=== PATIENT | female | born 1990 | race Hispanic/Latino ===

== ENCOUNTER 2019-09-11 13:30 | Outpatient (CLI) | payer BC, SELFPAY ==
--- NOTE | ~2019-09-11 | MR_ITS ---
EXAMINATION: MR brain/brain stem wo/w con DATE: 09/11/2019 17:25 CDT INDICATION: Persistent daily headaches. TECHNIQUE: Magnetic resonance imaging (MRI) of the brain and brainstem was performed without and with 20 cc MultiHance intravenous contrast. Sequences included sagittal and axial T1-weighted SE, axial d iffusion-weighted FS SE, axial T2*-weighted GRE, axial T2-weighted FLAIR Propeller, and axial T2-weig hted Propeller. Apparent diffusion coefficient (ADC) maps were created. COMPARISON: No prior studies for comparison. FINDINGS: The brain volume and ventricular system are within normal limits. The brain parenchymal si gnal intensity pattern and haji/white matter is normal and there is no evidence of hemorrhage, space occupying masses or infarctions. The flow signal voids of the major arterial structures about the kake of [place] and within the fab r dural venous sinuses appear grossly unremarkable and patent. The seventh and eighth cranial nerve complexes are normal. The mid sagittal image demonstrates a normal craniovertebral junction and chuck us callosum. There is mucosal thickening of the maxillary sinuses, likely chronic. No abnormal contrast enhancement was appreciated. IMPRESSION: 1: No acute intracranial abnormality. 2: Mild sinus disease, likely chronic. Reviewed, dictated and finalized at location A.
[2019-09-11 13:57] LABS: Estimated Glomerular Filt Rate > 60
== END 2019-09-11 13:31 ==
PROVIDERS: Visit Provider Physician Assistant
DX: G44.52 New daily persistent headache (NDPH) (principal)
CPT/HCPCS: 36415; 70553; A9577

== ENCOUNTER 2020-09-27 15:13 | Outpatient (CLI) | payer BC, SELFPAY ==
--- NOTE | ~2020-09-27 | US_ITS ---
EXAMINATION: US pelvic complete w TV DATE: 09/27/2020 15:43 INDICATION: Uterine hypertrophy Comparison:No prior studies for comparison. TECHNIQUE: Multiple transabdominal and endovaginal sonographic images of the pelvis performed. FINDINGS: The uterus measures 10.8 x 4.8 x 6.3 cm. The endometrial complex measures 2.2 cm. The right ovary measures 2.5 x 2.5 x 2 cm and the left ovary measures 1.8 x 2.4 x 1.9 cm. There are small follicles in each ovary. Normal doppler signal in both ovaries. There is no free fluid in the pelvis. There are no abnormal masses seen on either side. IMPRESSION: 1. Enlarged uterus with endometrial thickening measuring 2.2 cm. Reviewed, dictated and finalized at location B.
== END 2020-09-27 15:14 | disposition home or self-care (01) ==
PROVIDERS: PCP Physician Assistant; Visit Provider Obstetrics & Gynecology
DX: N85.2 Hypertrophy of uterus (principal)
CPT/HCPCS: 76830; 76856

== ENCOUNTER 2021-01-16 09:17 | Emergency (ER) | payer BC, SELFPAY ==
[2021-01-16 09:33] VITALS: BP 137/88; PULSE 100; RESP 16; TEMP 36.3; O2SAT 98
[2021-01-16 11:25] LABS: Basophils Absolute Auto 0.1 K/mm3 (0.0-0.1); Basophils Percent Auto 0.6 % (0.2-1.2); Eosinophils Absolute Auto 0.8 K/mm3 (0-0.3); Eosinophils Percent Auto 4.6 % (0-4.4); Hematocrit 40.8 % (37.0-47.0); Hemoglobin 12.7 g/dL (12.0-15.0); Immature Granulocyte Absolute 0.14 K/mm3 (0.00-0.031); Immature Granulocyte Percent A 0.8 % (0-0.5); Lymphocytes Absolute Auto 2.01 K/mm3 (0.9-3.2); Lymphocytes Percent Auto 11.8 % (18.3-44.2); Mean Corpuscular HGB Conc 31.1 g/dl (32-36); Mean Corpuscular Hemoglobin 25.4 pg (26-34); Mean Corpuscular Volume 81.6 fl (80-100); Mean Platelet Volume 9.5 fl (7.4-10.4); Monocytes Absolute Auto 0.8 K/mm3 (0.1-0.6); Monocytes Percent Auto 4.7 % (2.6-8.5); Neutrophils Absolute Auto 13.2 K/mm3 (1.3-6.7); Neutrophils Percent Auto 77.5 % (45.5-73.1); Platelet Count Result 435 k/mm3 (150-375); Red Cell Distribution Width 16.2 % (11.5-14.5)
[2021-01-16 12:03] LABS: Beta HCG Quantitative < 2.39 mIU/ML
[2021-01-16 12:22] VITALS: BP 139/79; PULSE 99
[2021-01-16 12:26] VITALS: BP 132/94; PULSE 108
[2021-01-16 12:27] VITALS: BP 131/94; PULSE 110
--- NOTE | 2021-01-16 13:11 | ED.FEMALEGU ---
HPI - Female Genitourinary General Chief complaint: Vaginal Bleeding Stated complaint: VAGINAL BLEEDING FOR 62 DAYS Time Seen by Provider: 01/16/21 12:35 Source: patient Mode of arrival: ambulatory Limitations: no limitations History of Present Illness HPI Narrative: Patient is 30 years old white female drove herself to the emergency room because of vaginal bleeding started over 60 days ago. 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 Patient is telling me that she been using 10-15 pads a day associated with blood clots. Patient denies any pain, cramps, lightheadedness, dizziness, shortness of breath or any other symptoms. Currently patient is on iron supplement. Related Data Home Medications Medication Instructions Recorded Confirmed citalopram 20 mg tablet 20 mg PO DAILY 09/20/20 09/20/20 fexofenadine 180 mg tablet 180 mg PO DAILY 09/20/20 09/20/20 lorazepam 1 mg tablet 1 mg PO DAILY PRN 09/20/20 09/20/20 bupropion HCl mg PO DAILY 01/16/21 drospirenone (contraceptive) 01/16/21 [Slynd] Allergies Allergy/AdvReac Type Severity Reaction Status Date / Time No Known Allergies Allergy Verified 01/16/21 12:19 Review of Systems Review of Systems: CONSTITUTIONAL: Denies fever, chills, or sweats. EYES: Denies visual changes, redness, or discharge. ENT: Denies rhinorrhea, congestion, sore throat, or otalgia. CARDIOVASCULAR: Denies chest pain, palpitations, or edema. RESPIRATORY: Denies cough or dyspnea. GASTROINTESTINAL: Denies abdominal pain, nausea, vomiting, or diarrhea. GENITOURINARY: Denies dysuria or hematuria. SKIN: Denies rash or itching. MUSCULOSKELETAL: Denies back pain, joint pain, or myalgia. NEUROLOGIC: Denies headache, numbness, or weakness. PSYCHIATRIC: Denies anxiety or depression. [facility] Past Medical History Medical History Anxiety Headache Vaginal delivery x2 Surgical History Surgical History History of elbow surgery 1999 [place] teeth extracted 2008 Family History Family History Grandparent Family history of coronary artery disease Lung cancer Cerebrovascular accident Heart disease Father Hypertension Heart disease Social History Social History Smoking status: Never smoker Second hand tobacco smoke exposure: No Alcohol intake: current Alcohol use details: occassional Substance use: never Exam Narrative: General appearance: Well-developed, well-nourished Skin: Normal color Head: Normocephalic, nontraumatic Eyes: Clear conjunctiva ENT: Oropharynx normal, ears normal, nose normal Neck: Supple, nontender Chest and respiratory: Airway patent, no respiratory distress, no accessory muscle use Heart: Regular rate/rhythm Abdomen: Soft, nontender, no organomegaly, quiet bowel sounds Vascular: Normal peripheral pulses, normal capillary refill. Musculoskeletal: Normal range of motion, nontender back Neurologic: Alert and oriented ?3, GEAR DESIGN ENGINEER is normal as tested, no gross motor deficit : External Female Exam: normal external appearance Speculum Exam - Vagina: normal appearance of the vagina and vaginal bleeding (No blood clots, 2 long Q-tip was enough to dry the whole vaginal pouch) Speculum Exam - Cervix: normal appearance of the cervix, normal palpation and Cervical os closed Bimanual exam- vagina & uterus: normal bimanual exam Course Course Emergency Course: Stable Vital Signs Vital signs: Vital Signs Temperature 36.3 C L 01/16/21 09:33 Pulse Rate 100
[2021-01-16] MEDS: SODIUM CHLORIDE 0.9% IV 1,000 ML 999 ML IV CONT (13:25)
[2021-01-16 14:32] VITALS: BP 129/86; PULSE 93; RESP 18; O2SAT 100
== END 2021-01-16 14:33 | disposition home or self-care (01) ==
PROVIDERS: Emergency Provider Emergency Medicine; PCP Physician Assistant
DX: N93.8 Other specified abnormal uterine and vaginal bleeding (principal); F41.9 Anxiety disorder, unspecified
CPT/HCPCS: 36415; 84702; 85025; 96360; 99284; J7030

== ENCOUNTER 2021-02-01 16:46 | Emergency (ER) | payer BC, SELFPAY ==
[2021-02-01 17:07] VITALS: BP 150/83; PULSE 108; RESP 16; TEMP 37.1; O2SAT 100
[2021-02-01 17:48] LABS: Basophils Absolute Auto 0.1 K/mm3 (0.0-0.1); Basophils Percent Auto 0.6 % (0.2-1.2); Eosinophils Absolute Auto 0.4 K/mm3 (0-0.3); Eosinophils Percent Auto 2.9 % (0-4.4); Hematocrit 36.6 % (37.0-47.0); Hemoglobin 11.5 g/dL (12.0-15.0); Immature Granulocyte Absolute 0.06 K/mm3 (0.00-0.031); Immature Granulocyte Percent A 0.4 % (0-0.5); Lymphocytes Absolute Auto 2.64 K/mm3 (0.9-3.2); Lymphocytes Percent Auto 18.9 % (18.3-44.2); Mean Corpuscular HGB Conc 31.4 g/dl (32-36); Mean Corpuscular Hemoglobin 25.9 pg (26-34); Mean Corpuscular Volume 82.4 fl (80-100); Mean Platelet Volume 9.6 fl (7.4-10.4); Monocytes Absolute Auto 0.8 K/mm3 (0.1-0.6); Monocytes Percent Auto 5.5 % (2.6-8.5); Neutrophils Percent Auto 71.7 % (45.5-73.1); Platelet Count Result 387 k/mm3 (150-375); Red Blood Count 4.44 M/mm3 (4.2-5.4); Red Cell Distribution Width 16.2 % (11.5-14.5); White Blood Count 13.9 K/mm3 (4.5-10.0)
[2021-02-01 21:49] VITALS: BP 136/88; PULSE 112; RESP 16; O2SAT 100
[2021-02-01] MEDS: SODIUM CHLORIDE 0.9% IV 1,000 ML 999 ML IV CONT (22:06)
[2021-02-01 23:03] VITALS: BP 145/107; PULSE 109
[2021-02-01 23:06] VITALS: BP 136/62; PULSE 109
[2021-02-01 23:07] VITALS: BP 144/93; PULSE 117
--- NOTE | 2021-02-01 23:23 | ED.FEMALEGU ---
HPI - Female Genitourinary General Chief complaint: Vaginal Bleeding Stated complaint: vaginal bleeding Time Seen by Provider: 02/01/21 21:17 History of Present Illness HPI Narrative: Patient is a 30-year-old female who presents to the ER with vaginal bleeding. Reports its been ongoing for 92 days. Over the last week she has been feeling a pad with a blood clot every hour but does not fully soaked through the pad. She reports occasional dizziness with sitting to standing and has been feeling fatigued. She is not on any blood thinners. She follows with Dr. Kern who has tried different oral contraceptive pills without resolution of the symptoms. Was referred here due to her bleeding. Denies nausea vomiting or shortness of breath. Related Data Home Medications Medication Instructions Recorded Confirmed citalopram 20 mg tablet 20 mg PO DAILY 09/20/20 09/20/20 fexofenadine 180 mg tablet 180 mg PO DAILY 09/20/20 09/20/20 lorazepam 1 mg tablet 1 mg PO DAILY PRN 09/20/20 09/20/20 bupropion HCl mg PO DAILY 01/16/21 norgestimate-ethinyl estradiol 1 tablet PO DAILY 01/19/21 0.18 mg/0.215mg/0.25mg-35 mcg(28)tablet Allergies Allergy/AdvReac Type Severity Reaction Status Date / Time No Known Allergies Allergy Verified 01/19/21 13:12 Review of Systems Review of Systems: All systems reviewed & are unremarkable except as noted in HPI and below Constitutional: Constitutional: Denies chills and Reports fatigue Gastrointestinal: Gastrointestinal: Reports abdominal pain, Denies diarrhea, Denies nausea and Denies vomiting Genitourinary: Genitourinary: Reports abnormal vaginal bleeding, Reports pelvic pain (Abdominal cramping) and Denies vaginal discharge [facility] Past Medical History Medical History Anxiety Depression Headache Vaginal delivery x2 Surgical History Surgical History History of elbow surgery 1998 [place] teeth extracted 2008 Family History Family History Grandparent Family history of coronary artery disease Lung cancer Cerebrovascular accident Heart disease Father Hypertension Heart disease Social History Social History Smoking status: Never smoker Second hand tobacco smoke exposure: No Alcohol intake: current Alcohol use details: occassional Substance use: never Exam Narrative: GENERAL: Well-appearing, morbidly obese, and in no acute distress. HEAD: Normocephalic, atraumatic. CHEST: Clear to auscultation. No respiratory distress. HEART: Regular rate and rhythm. Normal peripheral pulses. ABDOMEN: Soft, mild suprapubic discomfort with palpation, nondistended. : Normal external genitalia, small amount of dark blood coming from the cervical os. Cervix pink and nonfriable. No vaginal discharge. Pelvic exam performed by PA student under my direct supervision. EXTREMITIES: Normal range of motion. No edema. SKIN: Warm, dry, no rash. NEURO: Alert and oriented x3. Course Course Emergency Course: Contacted Dr. Parsons who is on-call for Dr. Kern. Would like patient to contact the office in the morning to schedule close follow-up as she has not been seen in the office since September. She will then talk to Dr. Kern and they will determine the best additional therapy which may include TXA. Patient's hemoglobin is stable does not require admission or emergent D&C. Vital Signs Vital signs: Vital Signs Temperature 98.7 F 02/01/21 17:07 Pulse Rate 108 H 02/01/21 17:07 Respiratory Rate 16 02/01/21 17:07 Blood Pressure 150/83 H 02/01/21 17:07 Pulse Oximetry 100 02/01/21 17:07 Temperature 98.7 F 02/01/21 17:07 Pulse Rate 117 H 02/01/21 23:07 Respiratory Rate 16 02/01/21 21:49 Blood Pressure 144/93 H 02/01/21 23:07 Pulse Oximetry
[2021-02-01 23:40] VITALS: BP 121/92; PULSE 108; RESP 16; O2SAT 100
== END 2021-02-01 23:42 | disposition home or self-care (01) ==
PROVIDERS: Family Medicine; Emergency Provider Emergency Medicine; PCP Physician Assistant
DX: N92.0 Excessive and frequent menstruation with regular cycle (principal); F41.9 Anxiety disorder, unspecified; F32.9 Major depressive disorder, single episode, unspecified
CPT/HCPCS: 36415; 85025; 96360; 99284; J7030

== ENCOUNTER 2021-02-02 10:20 | Day surgery (SDC) | payer BC, SELFPAY ==
[2021-02-02] VITALS (7 sets, daily range): BP systolic 108–145; BP diastolic 62–90; PULSE 88–117; RESP 15–22; TEMP 36.6; O2SAT 97–99; BMI 44.1
--- NOTE | 2021-02-02 15:08 | P.PNAN_ITS ---
Anes - Initial Pre Proc Eval Procedure: Operation Date: 02/02/21 16:00 Proposed Procedures p Hysteroscopy, Dilation and Curettage, Possible Myosure - Len Alexander MD Date/Time: 02/02/21 15:08 Surgeon: Len Alexander MD Pre Op Diagnosis: menorrhaghia Patient Data Age: 30 Gender: F Height: 1.73 m Weight: 131.55 kg Allergies Allergy/AdvReac Type Severity Reaction Status Date / Time No Known Allergies Allergy Verified 02/02/21 14:59 Home Medications Medication Instructions Recorded Confirmed Type citalopram 20 mg tablet 20 mg PO DAILY 09/20/20 02/02/21 History fexofenadine 180 mg tablet 180 mg PO DAILY 09/20/20 02/02/21 History lorazepam 1 mg tablet 1 mg PO PRN PRN 09/20/20 02/02/21 History bupropion HCl 300 mg PO QAM 01/16/21 02/02/21 History norgestimate-ethinyl estradiol 1 tablet PO DAILY 01/19/21 02/02/21 History 0.18 mg/0.215mg/0.25mg-35 mcg(28)tablet ondansetron HCl 4 mg tablet 4 mg PO Q6H PRN #20 tablet 01/19/21 02/02/21 Rx albuterol sulfate 2 puff INHALATION PRN PRN 02/02/21 02/02/21 History triamterene-hydrochlorothiazid 1 tablet PO PRN PRN 02/02/21 02/02/21 History Patient hx anesthesia problems: none Family hx anesthesia problems: none PMFSH Past Medical History Medical History (Updated 02/02/21 @ 15:09 by Omar Hartley DO) Anxiety Asthma Depression Headache PONV (postoperative nausea and vomiting) Vaginal delivery x2 Surgical History Surgical History History of elbow surgery 1999 [place] teeth extracted 2008 Family History Family History Grandparent Family history of coronary artery disease Lung cancer Cerebrovascular accident Heart disease Father Hypertension Heart disease Social History Social History Smoking status: Never smoker Second hand tobacco smoke exposure: No Alcohol intake: current Alcohol use details: ONE DRINK PER MONTH Substance use: never Spiritual care concerns: No Anes - Eval Final PreProcedure Day of Procedure 02/02/21 15:08 Patient weight: morbidly obese Heart: regular rate and rhythm Lungs: clear to auscultation and normal air movement Airway: Mallampati scale class II Neurological: alert and oriented Last oral intake: >/= 8 hours ASA classification: III Emergent: no Anesthetic plan: proceed Anesthesia type and monitoring: general GIVS and standard monitoring Informed Consent: The patient's anesthetic plan and its attendant risks and julianne efits were discussed with the patient/family/POA. Questions were solicited and answers provided to the satisfaction of the patient/family/POA.
--- NOTE | 2021-02-02 15:20 | PM.IMHP ---
H&P: HPI History of Present Illness Date/Time: 02/02/21 15:20 Patient has had irregular bleeding for 3 months she has been tried on control pills a low-dose control pills has tried Lysteda she has had an ultrasound which was normal she has been to the emergency department several times due to the bleeding her hemoglobin did decrease approximately 2 points from her last ER visit she reports feeling fatigued lightheadedness and dizziness she is saturating more than a pad an hour she has been given options of an IUD and she was informed that her latest medication regimen did help that she would need a D and C since she has had an increased and saturating more than a pad an hour symptomatic she was recommended for an urgent D&C. Chief Complaint: heavy bleeding Review of Systems Review of Systems: All systems reviewed & are unremarkable except as noted in HPI and below Cardiovascular: Cardiovascular: Reports no additional cardiovascular complaints, Denies chest pain and Denies dyspnea Respiratory: Respiratory: Reports no additional respiratory complaints and Denies dyspnea Gastrointestinal: Gastrointestinal: Reports abdominal pain, Denies change in bowel habits, Denies diarrhea, Denies nausea and Denies vomiting Genitourinary: Genitourinary: Reports pelvic pain Musculoskeletal: Musculoskeletal: Reports back pain Integumentary/Breasts: Skin/Breast: Reports system reviewed and no additional complaints, except as docu Neurologic: Reports system reviewed and no additional complaints, except as documented PMFSH Past Medical History Medical History Anxiety Asthma Depression Headache PONV (postoperative nausea and vomiting) Vaginal delivery x2 Surgical History Surgical History History of elbow surgery 1999 [place] teeth extracted 2008 Family History Family History Grandparent Family history of coronary artery disease Lung cancer Cerebrovascular accident Heart disease Father Hypertension Heart disease Social History Social History Smoking status: Never smoker Second hand tobacco smoke exposure: No Alcohol intake: current Alcohol use details: ONE DRINK PER MONTH Substance use: never Spiritual care concerns: No Meds Home Medications and Allergies Home Medications Medication Instructions Recorded Confirmed Type citalopram 20 mg tablet 20 mg PO DAILY 09/20/20 02/02/21 History fexofenadine 180 mg tablet 180 mg PO DAILY 09/20/20 02/02/21 History lorazepam 1 mg tablet 1 mg PO PRN PRN 09/20/20 02/02/21 History bupropion HCl 300 mg PO QAM 01/16/21 02/02/21 History norgestimate-ethinyl estradiol 1 tablet PO DAILY 01/19/21 02/02/21 History 0.18 mg/0.215mg/0.25mg-35 mcg(28)tablet ondansetron HCl 4 mg tablet 4 mg PO Q6H PRN #20 tablet 01/19/21 02/02/21 Rx albuterol sulfate 2 puff INHALATION PRN PRN 02/02/21 02/02/21 History triamterene-hydrochlorothiazid 1 tablet PO PRN PRN 02/02/21 02/02/21 History Allergies Allergy/AdvReac Type Severity Reaction Status Date / Time No Known Allergies Allergy Verified 02/02/21 14:59 Exam Const: Orientation/consciousness: oriented to person and oriented to place HENMT: Head: normal to inspection Eyes: General: appearance normal, both eyes and all related structures Resp: Effort & Inspection: normal respiratory effort Auscultation: clear to auscultation bilaterally Cardio: Rate: regular rate Rhythm: regular rhythm GI: Inspection: normal to inspection GI Palp: No Rebound tenderness present Neuro: General: oriented to person and oriented to place Cognition (Neuro): normal cognition Extrem: General: normal to inspection Psych: Appearance: grossly normal and well kempt Assessment and Plan Assessment and p
[2021-02-02] MEDS: ACETAMINOPHEN 500 MG TABLET 1000 MG PO (15:22)
--- NOTE | 2021-02-02 15:43 | WPDHPUPDATE1 ---
History and Physical Update Update Date/Time: 02/02/21 15:43 History and Physical has been reviewed, including an updated exam of the patient. There are NO changes in the patient's condition. Risks, benefits, and alternatives have been discussed and questions answered. Patient agrees to proceed with procedure.
[2021-02-02 15:47] LABS: Anion Gap 9 mmol/L (8-16); Blood Urea Nitrogen 8 mg/dL (7-17); Calcium 8.9 mg/dL (8.4-10.2); Carbon Dioxide 24 mmol/L (22-30); Chloride 103 mmol/L (98-107); Estimated CRCL calculation 169 ml/min; Estimated Glomerular Filt Rate > 60; Glucose 109 mg/dL (65-110); Potassium 3.7 mmol/L (3.4-5.0); Sodium 136 mmol/L (137-145)
[2021-02-02] MEDS: ceFAZolin 3 GM/D5W 100 ML 100 ML IVPB (15:47)
[2021-02-02] MEDS: LACTATED RINGERS 1,000 ML 30 ML IV CONT (16:08)
--- NOTE | 2021-02-02 16:09 | P.OPB_ITS ---
Procedure Note - Brief Procedure Note - Brief Date of procedure: 02/02/21 Pre-op diagnosis: menorrhaghia Post-op diagnosis: same Procedure performed: Diagnostic hysteroscopy and dilation and curettage Description of procedure: After informed consent was obtained patient was taken to the operating room and adequate IV sedation was administered. She was placed in high lithotomy position and prepped and draped in sterile fashion attention was turned to the vagina speculum was inserted. Single-tooth tenaculum placed on anterior lip of the cervix 1% lidocaine was injected at the cervical vaginal interface that 2,5,8 and 10:00. She was having active mild bleeding from the cervix.The cervix easily passed a size 8 Lopez dilator. The uterus was sounded to 10 cm. The hysteroscope was inserted. The cavity a ssessment showed dyssynchronous proliferative tissue. No obvious polyp or other lesions seen. The hysteroscope was removed. The uterine cavity was sharply curetted until there was no more tissue obtained. Hemostasis was noted at the os no active bleeding. Tenaculum removed hemostasis noted at the site. The patient tolerated the procedure well and was taken to recovery in stable condition. Sponge count correct. Anesthesia: MAC and local Surgeon: Len Alexander MD Estimated blood loss (mL): 5 Drains: No Packing: No Pathology: yes ( Endometrial curetting) Complications: No immediate complications Condition: stable Disposition: PACU Findings: uterus sound to 10 cm the cavity had dyssynchronous appearing and proliferative tissue.
[2021-02-02] MEDS: oxyCODONE HCL (*CRX) 5 MG TAB IR PO (16:44)
== END 2021-02-02 17:25 | disposition home or self-care (01) ==
PROVIDERS: Anesthesiology; PCP Physician Assistant; Visit Provider Obstetrics & Gynecology
PROC: 0U5B8ZZ Destruction of Endometrium, Via Natural or Artificial Opening Endoscopic (ICD-10-PCS; CPT 58563; principal; 2021-02-02 16:00)
DX: N92.0 Excessive and frequent menstruation with regular cycle (principal); J45.909 Unspecified asthma, uncomplicated; F41.8 Other specified anxiety disorders; Z79.51 Long term (current) use of inhaled steroids; E66.01 Morbid (severe) obesity due to excess calories; Z68.41 Body mass index [BMI] 40.0-44.9, adult
CPT/HCPCS: 58558; 36415; 80048; 88305; A9270; J0690; J2250; J2704; J3010; J7030; J7120

== ENCOUNTER 2021-02-02 13:56 | Outpatient (CLI) | payer BC, SELFPAY ==
[2021-02-02 14:48] LABS: EDCOVIDSCREEN Negative (Negative)
== END 2021-02-02 13:57 | disposition home or self-care (01) ==
LOC: ANHSURGERY 13:58
PROVIDERS: PCP Physician Assistant; Visit Provider Obstetrics & Gynecology
DX: Z01.812 Encounter for preprocedural laboratory examination (principal); Z20.822 Contact with and (suspected) exposure to COVID-19
CPT/HCPCS: 87426; C9803

== ENCOUNTER → 2021-03-20 00:17 | Outpatient (CLI) | payer BC, SELFPAY ==
[2021-03-20 18:52] LABS: SARS-CoV-2 RNA PCR Negative
== END ==
PROVIDERS: PCP Physician Assistant; Visit Provider Physician Assistant
DX: R68.89 Other general symptoms and signs (principal); Z20.822 Contact with and (suspected) exposure to COVID-19
CPT/HCPCS: C9803; U0003; U0005

== ENCOUNTER → 2021-03-28 01:52 | Outpatient (CLI) | payer BC, SELFPAY ==
[2021-03-28 18:23] LABS: SARS-CoV-2 RNA PCR Negative
== END ==
PROVIDERS: PCP Physician Assistant; Visit Provider Physician Assistant
DX: R68.89 Other general symptoms and signs (principal); Z20.822 Contact with and (suspected) exposure to COVID-19
CPT/HCPCS: C9803; U0003; U0005

== ENCOUNTER → 2021-05-16 01:07 | Outpatient (CLI) | payer BC, SELFPAY ==
[2021-05-17 14:30] LABS: SARS-CoV-2 RNA PCR Negative
== END ==
PROVIDERS: PCP Physician Assistant; Visit Provider Physician Assistant
DX: R68.89 Other general symptoms and signs (principal); Z20.822 Contact with and (suspected) exposure to COVID-19
CPT/HCPCS: C9803; U0003; U0005

== ENCOUNTER 2022-02-10 14:52 | Emergency (ER) | payer OTHER, BC, SELFPAY ==
[2022-02-10 15:04] VITALS: BP 145/81; PULSE 119; RESP 16; TEMP 37.8; O2SAT 100
--- NOTE | 2022-02-10 16:28 | ED.EYEPROB ---
HPI - Eye Problem General Chief complaint: Eye Problems Stated complaint: left eye infection Source: patient, RN notes reviewed and old records reviewed Mode of arrival: ambulatory Limitations: no limitations History of Present Illness HPI Narrative: 31 year old female who presents to express care with complaint of rash type of area with redness to upper eye lid with some swelling to the periauricular area of face since yesterday. Patient reports that this has happened before and Her PCP normally gives her a steoid and antibiotic which resolves her symptoms. Patient denies any new eye makeup, facial lotions or cleansers, no new foods or medications. Patient has taken Benadryl,Ibuprofen and has applied ice to face MD chief complaint: other (rash to left eyelid with redness) Onset (ago): day(s) (since yesterday) Onset description: sudden Eye Symptoms: burning and itching Severity scale (1-10): 5 Related Data Home Medications Medication Instructions Recorded Confirmed fexofenadine 180 mg tablet 180 mg PO DAILY 09/20/20 10/17/21 (Kate Allergy) albuterol sulfate 90 mcg/actuation 2 puff inhalation PRN PRN Allergy 02/02/21 10/17/21 aerosol inhaler Symptoms Allergies Allergy/AdvReac Type Severity Reaction Status Date / Time No Known Allergies Allergy Verified 02/10/22 15:10 Review of Systems Review of Systems: CONSTITUTIONAL: Low grade fever, no chills, or sweats EYES: Denies visual changes, red itching rash on upper eyelid left no discharge, denies any sharp pain ENT: Denies rhinorrhea, congestion, sore throat, or otalgia.swelling periauricular area of face CARDIOVASCULAR: Denies chest pain, palpitations, or edema. RESPIRATORY: Denies cough or dyspnea. GASTROINTESTINAL: Denies abdominal pain, nausea, vomiting, or diarrhea. GENITOURINARY: Denies dysuria or hematuria. SKIN: Denies rash or itching. MUSCULOSKELETAL: Denies back pain, joint pain, or myalgia. NEUROLOGIC: Denies headache, numbness, or weakness. PSYCHIATRIC: positive for history of anxiety or depression. All systems reviewed & are unremarkable except as noted in HPI and below PMFSH Past Medical History Medical History Anxiety Asthma Depression Headache PONV (postoperative nausea and vomiting) Psoriasis Seasonal allergies Vaginal delivery x2 Surgical History Surgical History History of dilation and curettage History of elbow surgery 1998 [place] teeth extracted 2008 Family History Family History Grandparent Family history of coronary artery disease Lung cancer Cerebrovascular accident Heart disease Father Hypertension Heart disease Social History Social History (Updated 02/12/22 @ 08:42 by Khushboo Murillo NP) Smoking status: Never smoker Second hand tobacco smoke exposure: No Alcohol intake: current Alcohol use details: ONE DRINK PER MONTH Substance use: never Living arrangements: with family Gender identity (if verbalized by the patient): Female Spiritual care concerns: No Comments At time of signature, agree with nursing past medical, surgical, social and family history. There is no relevant family history pertinent to the presenting complaint Exam Narrative: GENERAL: Well-appearing, well-nourished, and in no acute distress. HEAD: Normocephalic, atraumatic. EYES: PERRLA and EOMI.denies any visual changes, swelling with redness rash noted no drainage scaly in appearance, periauricular swelling on face ENT: Nares clear, no rhinorrhea or epistaxis. Mucous membranes moist.TM's normal with good light reflex, throat pink with no lesions or exudates or tonsil swelling NECK: Supple.no lymphadenopathy CHEST: Clear to auscultation. No respiratory distress.SAO2 100% on room air HEART: Regular rate and rhythm. No murmur heard. Normal peripheral pulses. A
--- NOTE | 2022-02-10 16:37 | ED.EYEPROB ---
HPI - Eye Problem General Chief complaint: Eye Problems Stated complaint: left eye infection Source: patient, RN notes reviewed and old records reviewed Mode of arrival: ambulatory Limitations: no limitations Related Data Home Medications Medication Instructions Recorded Confirmed fexofenadine 180 mg tablet 180 mg PO DAILY 09/20/20 10/17/21 (Kate Allergy) albuterol sulfate 90 mcg/actuation 2 puff inhalation PRN PRN Allergy 02/02/21 10/17/21 aerosol inhaler Symptoms Allergies Allergy/AdvReac Type Severity Reaction Status Date / Time No Known Allergies Allergy Verified 02/10/22 15:10 [facility] Past Medical History Medical History Anxiety Asthma Depression Headache PONV (postoperative nausea and vomiting) Vaginal delivery x2 Surgical History Surgical History History of dilation and curettage History of elbow surgery [address] teeth extracted 2008 Family History Family History Grandparent Family history of coronary artery disease Lung cancer Cerebrovascular accident Heart disease Father Hypertension Heart disease Social History Social History Smoking status: Never smoker Second hand tobacco smoke exposure: No Alcohol intake: current Alcohol use details: ONE DRINK PER MONTH Substance use: never Spiritual care concerns: No Course Vital Signs Vital signs: Vital Signs Temperature 37.8 C H 02/10/22 15:04 Pulse Rate 119 H 02/10/22 15:04 Respiratory Rate 16 02/10/22 15:04 Blood Pressure 145/81 H 02/10/22 15:04 Pulse Oximetry 100 02/10/22 15:04 Oxygen Delivery Room Air 02/10/22 15:04 Temperature 37.8 C H 02/10/22 15:04 Pulse Rate 119 H 02/10/22 15:04 Respiratory Rate 16 02/10/22 15:04 Blood Pressure 145/81 H 02/10/22 15:04 Pulse Oximetry 100 02/10/22 15:04 Oxygen Delivery Room Air 02/10/22 15:04 Discharge Plan Discharge Prescriptions: No Action Slynd 4 mg (28) tablet 4 mg PO DAILY 72 Days Qty: 72 3RF fexofenadine [Kate Allergy] 180 mg tablet 180 mg PO DAILY albuterol sulfate 90 mcg/actuation HFA aerosol inhaler 2 puff INHALATION PRN PRN (Reason: Allergy Symptoms) Follow-up/Referrals: Ricardo,MONICA Jaimes [Primary Care Provider] -
== END 2022-02-10 16:54 | disposition home or self-care (01) ==
PROVIDERS: Emergency Provider Registered Nurse; PCP Physician Assistant
DX: L25.9 Unspecified contact dermatitis, unspecified cause (principal); R22.0 Localized swelling, mass and lump, head; J45.909 Unspecified asthma, uncomplicated
CPT/HCPCS: 99213; G0463

== ENCOUNTER 2024-01-21 14:06 | Outpatient (CLI) | payer OTHER, SELFPAY ==
--- NOTE | ~2024-01-21 | XR_ITS ---
XR chest 2V Ordering provider: Emmanuelle Edwards, TRANSMISSION TESTER History: 33 years Female with . Cough ESPECIALLY WHILE LAUGHING . Comparison: 2009 FINDINGS: MEDIASTINUM: The cardiac silhouette is not enlarged. LUNGS: No infiltrates, effusions or pneumothorax. OTHER: No free air under the diaphragm. IMPRESSION: No acute cardiopulmonary pathology. Reviewed, dictated and finalized at location A.
== END 2024-01-21 14:07 | disposition home or self-care (01) ==
PROVIDERS: PCP Nurse Practitioner Family; Visit Provider Nurse Practitioner Family
DX: R05.9 Cough, unspecified (principal)
CPT/HCPCS: 71046

== ENCOUNTER 2024-02-06 15:33 | Outpatient (CLI) | payer OTHER, SELFPAY ==
--- NOTE | ~2024-02-06 | CT_ITS ---
EXAMINATION:CT diagnostic chest wo con DATE: 02/06/2024 16:02 INDICATION: Cough. TECHNIQUE: Computed tomography (CT) of the chest was performed without intravenous contrast. Automate d exposure control and iterative reconstruction technique were employed. The dose-length product (DLP ) was 722.89 mGy-cm. COMPARISON: None. FINDINGS: The lungs demonstrate mild atelectasis. There is a 3 mm nodule in left lung, likely benign. No bronchiectasis or honeycombing. No pleural effusion. The heart size is normal. No pericardial eff usion. There is diffuse hepatic steatosis. There is mild thoracic spondylosis. IMPRESSION: 1. No significant lung disease. Reviewed, dictated and finalized at location A.
== END 2024-02-06 15:34 | disposition home or self-care (01) ==
PROVIDERS: PCP Nurse Practitioner Family; Visit Provider Nurse Practitioner Family
DX: R05.9 Cough, unspecified (principal)
CPT/HCPCS: 71250

== ENCOUNTER 2024-02-26 09:12 | Outpatient (CLI) | payer OTHER, SELFPAY ==
--- NOTE | ~2024-02-26 | XR_ITS ---
XR_[id number]_CR Ordering provider: Emmanuelle Edwards, CRYSTAL GAZER History: . LEFT SIDED NECK PAIN RADIATING TO LEFT ARM, NO INJURY . Comparison: None. FINDINGS: VERTEBRAL BODIES: Normal height and alignment. No visible fracture or subluxation. The dens is intact . DISK SPACES: Well maintained. PARASPINOUS SOFT TISSUES: No prevertebral soft tissue swelling. IMPRESSION: No acute osseous abnormality cervical spine. Reviewed, dictated and finalized at location A.
--- NOTE | ~2024-02-26 | XR_ITS ---
3 VIEWS LUMBAR SPINE Ordering provider: Emmanuelle Edwards, FOOT CASTER History: . LBP, RIGHT SI PAIN, NO INJURY . Comparison: None. FINDINGS: VERTEBRAL BODIES: No visible fracture or subluxation. DISK SPACES: Normal. SOFT TISSUES: Normal. IMPRESSION: No acute osseous abnormality lumbar spine. Reviewed, dictated and finalized at location A.
--- NOTE | ~2024-02-26 | XR_ITS ---
XR hip BI 2V w AP pelvis Ordering provider: Emmanuelle Edwards, AIRFREIGHT OPERATIONS AGENT History: . LBP, RIGHT SI/HIP PAIN, NO INJURY, RADIATES DOWN LEG . Comparison: None. FINDINGS: BONES: No acute fracture or dislocation. HIP JOINT SPACES: Normal. SACROILIAC JOINT SPACES/LUMBAR SPINE: The sacroiliac joint spaces are normal. Normal visualized lower lumbar spine. PUBIC SYMPHYSIS: Normal. SOFT TISSUES: Normal. IMPRESSION: No acute osseous abnormality of the bilateral hips and pelvis. Reviewed, dictated and finalized at location A.
== END 2024-02-26 09:13 | disposition home or self-care (01) ==
LOC: ANHIMG 09:14
PROVIDERS: PCP Nurse Practitioner Family; Visit Provider Nurse Practitioner Family
DX: M54.50 Low back pain, unspecified (principal)
CPT/HCPCS: 72040; 72100; 73521

== ENCOUNTER 2025-05-04 10:47 | Outpatient (CLI) | payer OTHER, SELFPAY ==
--- NOTE | ~2025-05-04 | XR_ITS ---
EXAMINATION: XR elbow RT min 3V, 05/04/2025 11:08 TECHNOLOGY ADVISOR HISTORY: pain in right elbow, SURGERY 26 YEARS AGO COMPARISON: No comparisons available. Findings: No acute fracture or malalignment. No significant degenerative changes. Soft tissues unremarkable. Impression: No acute fracture or malalignment. Reviewed, dictated and finalized at location P. NOLOGY ADVISOR Impression: No acute fracture or malalignment.
--- OUTSIDE RECORDS SUMMARY | 2025-05-04 11:47 | XMS_ITS | Clinical Summary ---
Author Organization [employer]22 Address [address] [facility] [address] [place] [address] Phone Care Team Providers Care Bellows Charger Assembler Name Role Phone Prosper Wilks DO Primary Care Provider Social History Tobacco Use Types Packs/Day Years Used Date Smoking Tobacco: Never Assessed Comments Unknown Sex and Gender Information Value Date Recorded Sex Assigned at Not on file Legal Sex Female 8:33 AM CDT Gender Identity Not on file Sexual Orientation Not on file Plan of Treatment Health Maintenance Due Date Last Done Comments DTAP/TDAP/TD VACCINES (1 - Tdap) 2010 HEPATITIS B VACCINES (1 of 3 - 19+ 3-dose series) 12/2010 HPV/Cotest (21-29) 2012 HPV VACCINES (1 - 3-dose SCDM series) 2018 CERVICAL CANCER SCREENING 2021 HPV/Cotest (30-65) 2021 PAP SMEAR 2021 INFLUENZA VACCINE (#1) 2025 Insurance [employer] BLUE ACCESS/TRUE BLUE PPO Care Teams Bellows Charger Assembler Relationship Specialty Start Date End Date Prosper Wilks DO PCP - General 05/19/15
--- OUTSIDE RECORDS SUMMARY | 2025-05-04 11:47 | XMS_ITS | Clinical Summary ---
Author Organization [facility] [employer] Address [address] [place] [address] Care Team Providers Care Human Performance Professor Name Role Phone Fiona Dooley Primary Care Pr ovider Source Comments [facility] [employer],non-owned Affiliates and Associated Physician Practices is amultiple site organization consisting of ambulatory clinics and hospital sitesin [place], [place], [place] and [place]. This disclosure is being madepursuant to the Care Everywhere program and may not contain all information available regarding this patient. Last updated 18.[facility] [employer] Allergies No known active allergies Medications * Be aware that medications may not be up to date on this document. Alwaysverify current medications with the patient. Other once daily Unknown anxiety medication Active ALPRAZOLAM PO Active Social History Tobacco Use Types Packs/Day Years Used Date Smoking Tobacco: Never Smokeless Tobacco: Never Comments No Sex and Gender Information Value Date Recorded Sex Assigned at Not on file Legal Sex Female 5:36 AM FAMILY RESOURCE MANAGEMENT PROFESSOR Gender Identity Not on file Sexual Orientation Not on file Last Filed Vital Signs Vital Sign Reading Time Taken Comments Blood Pressure 132/86 04/15/2018 3:14 PM FAMILY RESOURCE MANAGEMENT PROFESSOR Pulse 89 04/15/2018 3:14 PM FAMILY RESOURCE MANAGEMENT PROFESSOR Temperature 36.6 C (97.9 F) 04/15/2018 3:14 PM FAMILY RESOURCE MANAGEMENT PROFESSOR Respiratory Rate 16 04/15/2018 3:14 PM FAMILY RESOURCE MANAGEMENT PROFESSOR Oxygen Saturation 97% 04/15/2018 3:14 PM FAMILY RESOURCE MANAGEMENT PROFESSOR Inhaled Oxygen Concentration - - Weight 117.9 kg (260 lb) 04/15/2018 3:14 PM FAMILY RESOURCE MANAGEMENT PROFESSOR Height 172.7 cm (5' 8) 04/15/2018 3:14 PM FAMILY RESOURCE MANAGEMENT PROFESSOR Body Mass Index 39.53 04/15/2018 3:14 PM FAMILY RESOURCE MANAGEMENT PROFESSOR Plan of Treatment Health Maintenance Due Date Last Done Comments HIV SCREENING 2006 HEPATITIS C SCREENING 07/05/2009 DTAP/TDAP/TD VACCINES (1 - Tdap) 2010 HEPATITIS B VACCINE (1 of 3 - 19+ 3-dose series) 2010 PAP SMEAR 2012 HPV VACCINE (1 - 3-dose SCDM series) 2018 Cervical Cancer Screening 2021 PAP with HPV 2021 DEPRESSION SCREENING 06/03/2024 COVID-19 VACCINE ( - 2024-2 6 season) 2025 INFLUENZA VACCINE (#1) 2025 ZOSTER VACCINE (1 of 2) 2041 HIB VACCINE Aged Out No longer eligi ble based on patient's age to complete this topic MENINGOCOCCAL (Group B) VACC INE SHARED DECISION-MAKING Aged Out No longer eligibl e based on patient's age to complete this topic MENINGOCOCCAL GROUPS A/C/Y/W VACCINE Aged Out No longer eligible b ased on patient's age to complete this topic PNEUMOCOCCAL VACCINE Aged Out No long er eligible based on patient's age to complete this topic Insurance [employer] Care Teams Human Performance Professor Relationship Specialty Start Date End Date Fiona Dooley PA [address] [place] [address] PCP - General 02/16/21
--- OUTSIDE RECORDS SUMMARY | 2025-05-04 11:47 | XMS_ITS | Encounter Summary ---
Author Organization [facility] Address [address] [place] [address] Care Team Providers Care Night Custodian Name Role Phone Emmanuelle Edwards COLLEGE SPECIALIST Primary Care Provider Encounter Details Date Type Department Care Team (Late st Contact Info) Description 06/10/2024 Orders Only [facility] Health Information Management [address] [place] [id number] Scanning, Provider Social History Tobacco Use Types Packs/Day Years Used Date Smoking Tobacco: Never Smokeless Tobacco: Never Comments Unknown Sex and Gender Information Value Date Recorded Sex Assigned at Not on file Legal Sex Female 12:51 PM CDT Gender Identity Not on file Sexual Orientation Not on file documented as of this encounter Plan of Treatment Not on file documented as of this encounter Procedures Procedure Name Priority Date/Time Associated Diagnosis Comments SCAN - RADIOLOGY/IMAGING 06/10/2024 documented in this encounter Results * SCAN - RADIOLOGY/IMAGING (06/10/2024) Anatomical Region Laterality Modality Other us Provider Scanning Final Result documented in this encounter Visit Diagnoses Not on filedocumented in this encounter Care Teams Night Custodian Relationship Specialty Start Date End Date Emmanuelle Edwards NP [address] [place] [address] AYAAN GUEVARA [address] PCP - General Family Medicine 03/23/24 documented as of this encounter
--- OUTSIDE RECORDS SUMMARY | 2025-05-04 11:47 | XMS_ITS | Clinical Summary ---
Author Organization [facility] [address] Address [address] [place] [address] Care Team Providers Care Crystal Cutter Name Role Phone Emmanuelle Edwards NP Primary Care Provider [phone] Allergies No known active allergies Medications albuterol HFA (PROVENTIL HFA,VENTOLIN HFA,PROAIR HFA) 90 mcg/actuation inhaler 01/10/2024 Active drospirenone, contraceptive, (Slynd) tablet tablet Take 1 each (4 mg total) by mouth daily Active ALPRAZolam (XANAX) 0.25 mg tablet Take 1 tablet (0.25 mg total) by mouth 3 (three) times a day as needed 02/26/2024 Active busPIRone (BUSPAR) 5 mg tablet Take 1 tablet (5 mg total) by mouth 2 (two) times a day 02/26/2024 Active Spiriva Respimat 1.25 mcg/actuation inhaler Inhale 2 puffs daily 02/26/2024 Active Active Problems Problem Noted Date Diagnosed Date PVC (premature ventricular contraction) 03/23/20 24 Anxiety 01/23/2024 Morbid obesity with BMI of 40.0-44.9, adult 01/02 Chest pain 01/23/2024 Inappropriate sinus tachycardia 01/23/2024 Palpitations 01/23/2024 Surgical History Surgery Date Site/Laterality Comments ELBOW SURGERY 06/03/1997 - 06/02/1998 DILATION AND CURETTAGE, DIAG NOSTIC / THERAPEUTIC Family History Medical History Relation Name Comments Heart attack Maternal Grandfather Stroke Maternal Grandmother Heart attack Paternal Grandfather Relation Name Status Comments Maternal Grandfather Maternal Grandmother Paternal Grandfather Social History Tobacco Use Types Packs/Day Years Used Date Smoking Tobacco: Never Smokeless Tobacco: Never Tobacco Cessation:Counseling Given: Not Answered Comments Unknown Sex and Gender Information Value Date Recorded Sex Assigned at Not on file Legal Sex Female 12:51 PM CDT Gender Identity Not on file Sexual Orientation Not on file Last Filed Vital Signs Vital Sign Reading Time Taken Comments Blood Pressure 144/72 06/29/2024 2:33 PM REHABILITATION NURSE Pulse 132 06/29/2024 2:33 PM REHABILITATION NURSE Temperature - - Respiratory Rate - - Oxygen Saturation 99% 06/29/2024 2:33 PM REHABILITATION NURSE Inhaled Oxygen Concentration - - Weight 132 kg (291 lb) 06/29/2024 2:33 PM REHABILITATION NURSE Height 172.7 cm (5' 8) 06/29/2024 2:33 PM REHABILITATION NURSE Body Mass Index 44.25 06/29/2024 2:33 PM REHABILITATION NURSE Plan of Treatment Health Maintenance Due Date Last Done Comments Cervical Cancer Screening 1991 Depression Screening 1991 Hepatitis C Screening 1991 Varicella Vaccines (1 of 2 - 13+ 2-dose series) 2004 Hepatitis B Screening 2009 Regular Well Visit/Exam 18-64 2009 HPV Vaccines (1 - 3-dose SCD M series) 2018 Influenza Vaccine (#1) 2025 DTaP/Tdap/Td Vaccine (2 - Td or Tdap) 06/02/2026 06/02/2016 Pneumococcal vaccine <65 Aged Out No longer eligible based on patient's age to complete this topic Insurance [facility] HMO/PPO Address: [facility] [address] [place] [address] Care Teams Crystal Cutter Relationship Specialty Start Date End Date Emmanuelle Edwards NP [address] [place] [address] [place] [address] PCP - General Family Medicine 03/23/24
--- OUTSIDE RECORDS SUMMARY | 2025-05-04 11:48 | XMS_ITS | Clinical Summary ---
Author Organization [facility] Address [address] [place] [address] Care Team Providers Care Cutting Machine Tender Decorative Name Role Phone Fiona Silva Primary Care Provider [phone] Allergies No known active allergies Medications dicyclomine (BENTYL) 20 MG tablet Take 1 tablet (20 mg total) by mouth 4 (four) times daily as needed (cramping). 20 tablet 3 Active ondansetron (ZOFRAN-ODT) 4 MG disintegrating tablet Take 1 tablet (4 mg total) by mouth every 8 (eight) hours as needed for Nausea. 15 tablet 3 Active Social History Tobacco Use Types Packs/Day Years Used Date Smoking Tobacco: Never Passive Smoke Exposure: Never Smokeless Tobacco: Never Tobacco Cessation:Counseling Given: Not Answered Alcohol Use Standard Drinks/Week Comments Yes 0 (1 standard drink = 0.6 oz pur e alcohol) Comments No Sex and Gender Information Value Date Recorded Sex Assigned at Not on file Legal Sex Female 9:44 PM CDT Gender Identity Not on file Sexual Orientation Not on file Last Filed Vital Signs Vital Sign Reading Time Taken Comments Blood Pressure 141/93 09/15/2022 9:52 PM CDT Pulse 98 09/15/2022 9:52 PM CDT Temperature 36.8 C (98.2 F) 09/15/2022 9:52 PM CDT Respiratory Rate 18 09/15/2022 9:52 PM CDT Oxygen Saturation 100% 09/15/2022 9:52 PM CDT Inhaled Oxygen Concentration - - Weight 124.6 kg (274 lb 11.1 oz) 09/15/2022 9:52 PM CDT Height 172.7 cm (5' 8) 09/15/2022 9:52 PM CDT Body Mass Index 41.77 09/15/2022 9:52 PM CDT Plan of Treatment Health Maintenance Due Date Last Done Comments Cervical Cancer Screening Pa p Smear (Age 30 to 64) Every 3 Years 1991 Annual Physical 1994 Hepatitis C 2009 Hepatitis B Vaccines (1 of 3 - 19+ 3-dose series) 2010 HPV Vaccines (1 - 3-dose SCD M series) 2018 Cervical Cancer Screening Pa p with HPV Testing (Age 30 to 64) Every 5 Years 2021 Cervical Cancer Screening with HPV 2021 COVID-19 Vaccine (2024-2 6 season) 2025 Influenza Adult (#1) 2025 DTaP, Tdap and Td Vaccines ( 2 - Td or Tdap) 06/02/2026 06/02/2016 Hepatitis A Vaccines Aged Out No long er eligible based on patient's age to complete this topic Meningococcal B Vaccine Aged Out No l onger eligible based on patient's age to complete this topic Meningococcal Vaccine Aged Out No geen norm eligible based on patient's age to complete this topic Pneumococcal Vaccine: Pediat rics (0 to 5 Years) and At-Risk Patients (6 to 49 Years) Aged Out No longer eligi ble based on patient's age to complete this topic RSV Immunizations Under 20 Months Aged Out No longer eligible based on patient's age to complete this topic Insurance [facility] Care Teams Cutting Machine Tender Decorative Relationship Specialty Start Date End Date Fiona Silva PA PCP - General PHYSICIAN ONCOLOGY ADMIN 09/15/22
== END 2025-05-04 10:48 | disposition home or self-care (01) ==
PROVIDERS: PCP Nurse Practitioner Family; Visit Provider Nurse Practitioner Family
DX: M25.521 Pain in right elbow (principal)
CPT/HCPCS: 73080